=== PATIENT | female | born 1960 | race Caucasian/White ===

== ENCOUNTER 2016-07-09 05:35 | Day surgery (SDC) | payer MEDICARE ==
[~2016-07-09] VITALS: Ht 157.5 cm; Wt 112.5 kg
[2016-07-09] VITALS (12 sets, daily range): BP systolic 123–146; BP diastolic 71–88; PULSE 102–119; RESP 13–20; O2SAT 93–100
[2016-07-09] MEDS: Lactated Ringer's 1,000 ML IV SCH ×4 (05:00→09:00)
[~2016-07-09 05:35] MED LIST: INSU100V7 SUBQ; LEVO125C2 PO; LIP40 PO; LOSA50TA3 PO; VENL37.57 PO
[2016-07-09] MEDS ORDERED: fentaNYL-PF 50 mCg/mL 2 mL Inj ONE (05:36)
[2016-07-09] MEDS ORDERED: Rocuronium 10 mg/mL 5 mL Inj ONE ×2 (05:36)
[2016-07-09] MEDS ORDERED: Labetalol 5 mg/mL 20 mL Inj ONE ×2 (05:36)
[2016-07-09] MEDS ORDERED: Ondansetron 2 mg/mL 2 mL Inj ONE ×2 (05:36)
[2016-07-09] MEDS ORDERED: Dexamethasone 4 mg/mL Inj ONE ×2 (05:36)
[2016-07-09] MEDS ORDERED: Glycopyrrolate 0.2 MG/ML 1mL Inj ONE ×2 (05:36)
[2016-07-09] MEDS ORDERED: EPHEDrine/NS 5 mg/mL 5 mL Syringe ONE ×2 (05:36)
[2016-07-09] MEDS ORDERED: Phenylephrine/NS 100 mCg/mL 10 mL Syringe IVPUSH ONE (05:36)
[2016-07-09] MEDS ORDERED: Phenylephrine/NS-PF 100 mCg/mL 5 mL Syringe IVPUSH ONE (05:36)
[2016-07-09] MEDS ORDERED: Neostigmine 1 mg/mL 10 mL Inj ONE ×2 (05:36)
[2016-07-09] MEDS ORDERED: Propofol 10,000 mCg/mL 20 mL Inj ONE ×2 (05:36)
[2016-07-09] MEDS ORDERED: CeFAZolin Inj 2 gm / 50mL D5W IV ONE (05:40)
[2016-07-09 06:42] LABS: BASOPHILS % (AUTO) 0.3 % (0-3); EOSINOPHILS % (AUTO) 1.5 % (0-5); MONOCYTES % (AUTO) 11.2 % (4-12); Mean Corpuscular Volume 79.8 fL (81-100); NEUTROPHILS % (AUTO) 66.3 % (40-74); Platelet Count 297 bil/L (150-400)
[2016-07-09] MEDS ORDERED: Lactated Ringer's 500 ML IV PRN (07:24)
[2016-07-09] MEDS ORDERED: Lactated Ringer's 1,000 ML IV SCH (07:24)
--- NOTE | 2016-07-09 07:24 | PCM.HPANE ---
Patient Data Date of Service: Jul 09, 2016 (0723) Surgeon Admitting Provider: Attending Provider:Reshma Mitchell MD Primary Care Physician:Viktoriya Reis MD Other Provider:Jean Stone Anesthesia Reason for Visit Abnormal Uterine Bleeding ABNORMAL UTERINE BLEEDING Ht/WT & BMI Height (Feet): 5 Height (Inches): 2.00 Weight (Kilograms): 111.4 Body Mass Index 45.00 Allergies Coded Allergies: Sulfa (Sulfonamide Antibiotics) (Verified Allergy, Unknown, 10/18/15) adhesive tape (Verified Allergy, Unknown, 10/18/15) lamotrigine (Verified Allergy, Unknown, 10/18/15) Past Anesthesia History Anesthesia History: Denies:: Anesthesia Reactions (facial "red" for a day after last surgery, blood sugars high), Fam Anesthesia Reaction Diabetes History Hx Diabetes?: Yes Type of Diabetes: Type II Glycemic Control: Insulin Dependent Current Bedside Blood Glucose: 93 MRSA MRSA: No Medications Hypertension Medication: Yes Home Meds Incl Beta Milagro: No Reported Medications Venlafaxine 37.5 Mg Icmwam26.5 Mg PO BID Ref 0 07/08/16 Levothyroxine (Tirosint)125 Mcg Rptgdup009 Mcg PO DAILY 07/08/16 Insulin Glargine (Lantus U100 Insulin Vial)100 Unit/Ml Vial10 Unit SUBQ QPM #1 VIAL Ref 0 07/08/16 Insulin Glargine (Lantus U100 Insulin Vial)100 Unit/Ml Vial45 Unit SUBQ QAM #1 VIAL Ref 0 07/08/16 Losartan Potassium (Cozaar)50 Mg Bozmcc57 Mg PO DAILY 07/08/16 Atorvastatin (Lipitor)40 Mg Gqjslk27 Mg PO DAILY Ref 0 07/08/16 Discontinued Reported Medications Venlafaxine ER 37.5 Mg Tab.er.2450 Mg PO BID Ref 0 11/03/15 Trazodone 50 Mg Qolrzn82-923 Mg PO HS Ref 0 11/03/15 Levothyroxine (Tirosint)125 Mcg Ogmbrkq646 Mcg PO DAILY 11/03/15 Insulin Glargine (Lantus U100 Insulin Vial)100 Unit/Ml Vial12 Unit SUBQ QPM #1 VIAL Ref 0 11/03/15 Insulin Glargine (Lantus U100 Insulin Vial)100 Unit/Ml Vial55 Unit SUBQ QAM #1 VIAL Ref 0 11/03/15 Losartan Potassium (Cozaar)50 Mg Zsrodg68 Mg PO DAILY 11/03/15 Atorvastatin (Lipitor)40 Mg Yhfcfn04 Mg PO DAILY Ref 0 11/03/15 History History of ENT Problems?: Yes HEENT History: Positive for:: Hearing Problem Sinus Problem (hx of sinus polyps) Other HEENT Pertinent History: 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 Hx of Heart Problems?: Yes Cardiovascular History: Positive for:: Hypertension Denies:: Abdominal Aortic Aneurism Atrial Fibrillation Cardiac Surgery Heart Murmur Irregular Heartbeat Pacemaker Hx of Respiratory Problem?: No Respiratory History: Positive for:: Asthma (exertional asthma) Denies:: Oxygen Administration Pneumonia Tuberculosis Use of C-PAP Machine (high stop bang- has not done sleep study despite recommendations) Hx Neurologic Problems?: No Neurological History: Denies:: CVA Headaches Multiple Sclerosis Parkinson's Disease Seizures Hx of GI Problems?: Yes Gastrointestinal History: Positive for:: Gall Bladder Disease (removed) Denies:: Gastrointestinal Bleeding Heartburn Hepatitis Hx of Problems?: No Genitourinary History: Denies:: Kidney Stones Urinary Tract Infection Female Hx: Denies:: Currently Problems with Breasts? Skin History: Denies:: History Skin Disorders? Pressure Ulcers Hx Musculoskeletal Problems?: Yes Musculoskeletal History: Positive for:: Musculoskeletal Trauma (past hx knee arthroscopy) Hx of Psycho/Social Problems?: Yes Psycho Social History: Positive for:: Anxiety Hx Depression Hx Surgeries?: Yes (knee scope, arnaud, hysteroscopy) Hx Any Other Health Problems?: Yes Other History: Denies:: Cancer Thyroid Disease History Blood Transfusions: Positive for:: Accept Blood Products? Denies:: Blood Transfuse Reaction Blood Transfusions Hx Diabetes: YesBedside Blood Glucose: 93 Hx Alcohol Use: NoHx Substance Use: No Smoking Status: Never Smoker Have You Smoked inLast 12 mo: No Stop/Bang S-Snoring: Do You Snore Loudly: No T-Tired: feel tired, fatigued: No O-Obsered: Observed not breath: Yes P-Blood Pressure: treated: Yes B- Body Mass Index > 35 kg/m2: Yes A- Age over 50: Yes N- Neck Large Circumference: Yes G- Gender Male: No PHIL Total Score: 5 PHIL Risk Assessment: High Risk, =/>3 Yes Risk Assessment Category Category 1A: Patient has history of documented sleep apnea, and HAS NOT received any narcotic, sedative or anesthesia administration during this stay. Category 1B: Patient has history of documented sleep apnea, and HAS received any narcotic , sedative or anesthesia administration during this stay Category 2: Patient has SUSPECTED Obstructive Sleep Apnea, and HAS received any narcotic , sedative or anesthesia administration during this stay. Category 3: Patient has SUSPECTED Obstructive Sleep Apnea and HAS NOT received narcotic, sedative or anesthesia administration during this stay. Category 4: Outpatient in Procedural Areas with known sleep apnea or who screen positive for High Risk via the STOP/BANG questionnaire. Exam Exam Vital Signs Vital Signs Date Time Temp Pulse Resp B/P Pulse Ox O2 Delivery O2 Flow Rate FiO2 07/09/16 06:17 36.1 106 18 146/88 97 Room Air General Appearance: Alert, Oriented X3, Cooperative HEENT/AIRWAY: MP 2 Lungs: Clear to Auscultation Heart: Exam Unremarkable Meds/Labs/Diagnostics Admission Meds Current Medications Lactated Ringer's (Lr) 1,000 ml @ 120 mls/hr Q8H20M IV Last administered on t 05:13; Start 07/09/16 at 05:00; Stop 07/09/16 at 13:19 Bedside Blood Glucose: 93 Labs Test 07/09/16 06:33 White Blood Count 10.0th/mm3 (3.8-10.1) Red Blood Count 5.39mil/mm3 (3.90-5.20) Hemoglobin 14.0g/dL (12.0-15.6) Hematocrit 43.0% (35.0-46.0) Mean Corpuscular Volume 79.8fL (81-100) Mean Corpuscular Hemoglobin 26.0pg (27.0-35.0) Mean Corpuscular Hemoglobin Concent 32.6% (32.0-37.0) Red Cell Distribution Width 12.8% (12.3-15.4) Platelet Count 297bil/L (150-400) Neutrophils (%) (Auto) 66.3% (40-74) Lymphocytes (%) (Auto) 20.6% (14-46) Monocytes (%) (Auto) 11.2% (4-12) Eosinophils (%) (Auto) 1.5% (0-5) Basophils (%) (Auto) 0.3% (0-3) Sodium Level 141mEq/L (134-144) Potassium Level 4.0mEq/L (3.5-5.2) Chloride Level 102mEq/L (97-108) Carbon Dioxide Level 23mmol/L (18-29) Blood Urea Nitrogen 9mg/dL (6-24) Creatinine 0.57mg/dL (0.57-1.00) Estimat Glomerular Filtration Rate 158mL/min (>59) Glucose Level 108mg/dL (60-99) Calcium Level 8.7mg/dL (8.5-10.1) Plan Impression Patient chart reviewed, patient interviewed and anesthestic plan with risks, benefits, and alternatives discussed, and informed consent obtained. NPO Status: 07/07 ASA Physical Status: ASA3 Severe Disease Anesthetic Plan: GA Bene/Risks/Altern/Consents: Yes HP Complete Prior to Induction: Yes Antonio Martínez MD Jul 09, 2016 07:24
[2016-07-09] MEDS ORDERED: fentaNYL-PF 50 mCg/mL 2 mL Inj IVPUSH PRN (07:25)
[2016-07-09] MEDS ORDERED: MetoCLOpramide 5 mg/mL 2 mL Inj IVPUSH PRN (07:25)
[2016-07-09] MEDS ORDERED: Ondansetron 2 mg/mL 2 mL Inj IVPUSH PRN ×2 (07:25→11:40)
[2016-07-09] MEDS ORDERED: Phenylephrine 10,000 mCg/mL Inj IVPUSH PRN (07:25)
[2016-07-09] MEDS ORDERED: EPHEDrine Sulfate 50 mg/mL Inj IVPUSH PRN (07:25)
[2016-07-09] MEDS ORDERED: Dexamethasone 4 mg/mL Inj IVPUSH PRN (07:25)
[2016-07-09] MEDS: CeFAZolin Inj 2 GM in IV Premix 1 EACH IV ONE ×2 (07:45→08:03)
[2016-07-09] MEDS ORDERED: Bupivacaine 0.5%/EPI 50 mL Inj INFILTRATE ONE (08:45)
--- NOTE | 2016-07-09 11:12 | PCM.ANEP1 ---
Post Anesthesia Phase 1 PACU Phase 1 Assessment Date of Service: Jul 09, 2016 (0723) Vital Signs 133/77, 37.0, 20, 107, 99% Vital Signs Date Time Temp Pulse Resp B/P Pulse Ox O2 Delivery O2 Flow Rate FiO2 07/09/16 06:17 36.1 106 18 146/88 97 Room Air Anesthetic Administered: GA Level of Alertness: Awake, talking HENRIQUEZ's with Equal Strength: Yes Pain: No Nausea or Vomiting: No Oxygen Delivery: Simple Mask Lungs: Clear to Auscultation Dermatome Level: Full Sensation Summary Hemodynamic instability warranting an AL. Otherwise uneventful GETA. Antonio Martínez MD Jul 09, 2016 11:12
--- NOTE | 2016-07-09 11:13 | PCM.ANEP2 ---
Post Anesthesia Evaluation ASA/CMS Post Anesthesia VS in Patient's Normal Range?: Yes Resp Stable; Airway Patent?: Yes CV Function & Hydration Stable: Yes Mental Status Recovered?: Yes Pain control Satisfactory?: Yes N/V Control Satisfactory?: Yes Antonio Martínez MD Jul 09, 2016 11:13
[2016-07-09] MEDS: HYDROmorphone 1 mg/mL Inj IVPUSH PRN ×2 (11:19→11:34)
--- NOTE | 2016-07-09 11:35 | PCM.SURGOP ---
Surgical Operative Report Date of Service: Jul 09, 2016 Pre Operative Diagnosis 1. AUB 2. 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 AUB 2. 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 Abdominal and pelvic adhesions Procedure: 1. Total laparoscopic hysterectomy with right salpingectomy 2. Extensive lysis of adhesions 3. Cystoscopy of the bladder Surgeon and Cobol Application Developer: Surgeon: Reshma Mitchell MD Assistants: Hortensia Gonzáles was necessary for this procedure for her surgical expertise and to help with exposure. Indication for Procedure 55 y/o G0 with Flynn syndrome, type II diabetes and history of abnormal uterine bleeding who presents today for hysterectomy, Findings: Intraoperative findings showed dense pelvic adhesions of the bladder to the lower uterine segment and an obliterated posterior cul-de-sac. There were omental adhesions to the right pelvic and abdominal sidewall. There were omental adhesions and bowel adhered to the left pelvic sidewall and anterior abdominal wall. Survey of the upper abdomen was normal. No significant adhesions were appreciated in her upper abdomen. The uterus appeared normal shaped. There was a single right fallopian tube. No left fallopian tube was appreciated. Did not visualize or appreciate any ovaries bilaterally. The introitus was very narrow. Able to fit 2 fingers into the patient's vagina. The cervix was normal in appearance but very small. On cystoscopy the bladder there was no suture appreciated in the bladder. There was bilateral spillage of urine from both ureters and the procedure. Rectal exam postoperatively was normal. No suture was palpated in the rectum. Procedure Details Patient was taken to the operating room where her general anesthesia was obtained without difficulty. She was placed in a lithotomy position in the [facility] an acute care hospital and prepared and draped in the normal sterile fashion. A bivalve speculum was inserted into the patient's vagina and the cervix was identified and grasped with a single-tooth tenaculum and a small V care uterine manipulator was inserted with some difficulty due to narrow introitus. A Garibay catheter was placed. Our attention was then turned patient's abdomen. The umbilicus was injected with 7 mL's of half percent Marcaine with epinephrine. A varies needle was inserted directly into the patient's peritoneal cavity. Water drop test and needle aspirate was confirmatory and negative. A pneumoperitoneum was then obtained with CO2 gas to a pressure of 15 mmHg. A 5 mm skin incision was made with a scalpel at the base of the umbilicus and a 5 mm blunt trocar was inserted directly into the patient's peritoneal cavity using the Visiport function of the trocar. Survey of abdomen and pelvis noted as above. A right and left lower quadrant port site were marked off and skin was injected with half percent Marcaine with epinephrine. Two 5mm skin incisions were made with a scalpel and 5 mm blunt trochars were inserted under direct visualization. At this point in the procedure the adhesions in the right lower quadrant were taken down with blunt and sharp dissection. In a similar fashion the omental adhesions in the left lower quadrant were taken down with blunt and sharp dissection to help with visualization. There was an omental curtain adhered over the fundus of the uterus and obscuring the pelvis. This was transected at its attachment to the anterior abdominal wall and retracted. Once normal anatomy was restored with lysis of adhesions a total laparoscopic hysterectomy with right salpingectomy was performed using the Thunderbeat cautery device. I was unable to clearly identify the ureters at the beginning of the procedure due to dense pelvic and abdominal wall adhesions. The right fallopian tube was removed with the Thunderbeat cautery device at beginning of case. The round ligament was transected bilaterally. The anterior leaf of the broad ligament was then opened and carried anteriorly creating a bladder flap. This took a significant amount of time due to the density of scarring and adhesions of the bladder to the lower uterine segment. The uterine arteries were skeletonized bilaterally. They were cauterized and transected using the Thunderbeat cautery device. The V care cup was identified and the vagina was entered sharply with the Thunderbeat cautery device. This incision was carried around circumferentially freeing the uterus from the vagina. The uterus was then removed through the patient's vagina. The pelvis was irrigated with saline. The vaginal cuff was then reapproximated with a 2-0 V lock suture in a running fashion. Good hemostasis was assured. This completed the hysterectomy portion of the case. All instruments were removed from the patient's perineal cavity. The pneumoperitoneum was released and the patient given several deep inspiratory breath to help expel any excess CO2 gas. The skin incisions were reapproximated with 4-0 Monocryl in a subcuticular fashion and Dermabond applied. A cystoscopy of the bladder was then performed using a 70 cystoscope. The Garibay catheter was removed and a 70 cystoscope was inserted into the bladder. The bladder was distended with 300 mL's of normal saline. Survey of the bladder was performed and there was bilateral spillage of urine from both ureters at the end of procedure and the bladder was noted to be free of any sutures or defects. The cystoscope was then removed. A rectal exam was performed and no suture material was felt rectally. All lap instrument and needle counts were correct 2 at the end of the procedure Complications There were no periprocedural complications identified. Surgical Specimen Removed: Yes Specimen sent to Pathology: Yes Surgical Specimen description: 1. Uterus with portion of right fallopian tube. Anesthetic Plan: GA Grafts, Implants: None Output, Estimated Blood Loss: 100 Blood Administration during escobar: No Catheters: None Reshma Mitchell MD Jul 09, 2016 11:35
[2016-07-09] MEDS ORDERED: Polyethylene Glycol (PEG) 17 Gm Powder PO PRN (11:40)
[2016-07-09] MEDS ORDERED: Alum-Mag Hydrox-Simeth 30 mL Suspension PO PRN (11:40)
[2016-07-09] MEDS ORDERED: Glucose 40% Oral Gel 15 Gm Tube PO PRN ×2 (11:55→17:25)
[2016-07-09] MEDS ORDERED: Insulin LISPRO 300 Unit/3 mL Inj SUBQ SCH (12:00)
[2016-07-09] MEDS ORDERED: HYDROmorphone 0.5 mg/0.5 mL iSecure Syringe ONE (15:05)
[2016-07-09] MEDS ORDERED: HYDROmorphone PCA 0.2 mg/mL 30 mL Inj IV PRN (15:10)
[2016-07-09] MEDS ORDERED: HYDROmorphone 0.5 mg/0.5 mL iSecure Syringe IVPUSH ONE (15:35)
[2016-07-09] MEDS: 0.9% Sodium Chloride 1,000 ML IV SCH (15:38)
[2016-07-09] MEDS: Sodium Chloride LOK Flush 10 mL Syringe IVFLUSH SCH (16:30)
[2016-07-09] MEDS: oxyCODONE-Acetamin 5-325 mg Tablet PO PRN ×2 (16:54→23:21)
--- NOTE | 2016-07-09 17:25 | NUR ---
Admission/Garibay Pt arrived on unit at 1235 on gurney from PACU for lap total hysterectomy. Pt sleepy and awakens to voice, transferred to bed using slide board. Pt has 4 lap sites with duoderm and no drainage. Peripad in place for minimal serosanguineous vaginal output. Pt has IV infusing LR and 2L NC on. SCD's on and reconnected. Pain well controlled 3/10. Has sensation of needing to void, but unable to void on bedpan or BSC. Bladder scan done at 1410 and is 566ml. Multiple Garibay attempts and unable to find urethra. Ric OCONNELL and per his instructions were able to place Garibay, draining dark urine to gravity. 600ml output.
[2016-07-09] MEDS: Insulin LISPRO 300 Unit/3 mL Inj SUBQ SCH ×2 (18:45→22:00)
[2016-07-09] MEDS ORDERED: Insulin GLARgine 100 Unit/mL Syringe SUBQ SCH ×2 (21:00→22:00)
[2016-07-09] MEDS: Insulin GLARgine 100 Unit/mL Syringe SUBQ SCH (23:16)
[2016-07-10] VITALS (8 sets, daily range): BP systolic 83–133; BP diastolic 54–82; PULSE 101–117; RESP 16–20; O2SAT 92–97
[2016-07-10] MEDS: Sodium Chloride LOK Flush 10 mL Syringe IVFLUSH SCH ×3 (00:30→17:14)
[2016-07-10] MEDS: oxyCODONE-Acetamin 5-325 mg Tablet PO PRN ×3 (04:17→20:49)
--- NOTE | 2016-07-10 06:34 | NUR ---
Pain Pt having abdominal pain, surgical sites well approximated, no s/s of infection. Percoset Q4 given to address pain with good results. pt pleasant and cooperative. Will continue to monitor.
--- NOTE | 2016-07-10 06:53 | PCM.DIGYN ---
Surgical Discharge Instruction Dates of Hospitalization Date of Hospital Admission 07/09/16 Providers Admitting Physician: Primary Care Physician: Viktoriya Reis MD Attending Physician: Reshma Mitchell MD Diagnosis at Time of Discharge Diagnosis at time of discharge 1. Abnormal uterine bleeding 2. Morbid obesity 3. Turners syndrome 4. Type 2 DM insulin dependent 5. Abdominal and pelvic adhesions Problems: (1) Abnormal uterine bleeding (AUB) Plan: Postop day 1 after laparoscopic hysterectomy Status: Chronic ICD Code: N93.9 Diet Discharge Diet: No restrictions, Diabetic Activity Discharge Activity-General: Be up and about, Balance rest and activity, Activity as pain allows, No lifting >15 pounds for 2 weeks, No driving while taking narcotic Dressing and Incisional Care Dressing Care: Allow Steri Stripes to fall off Hygiene: May shower, DO NOT soak incision under water, NO bathtub, hot tub or whirlpool Additional Instructions Discharge Instructions Pelvic rest until follow up appointment in 2 weeks including no intercourse or tampon use. Prescription for Percocet has been provided for you to use as needed for pain. Percocet contains Tylenol so be careful to take as directed. Follow Up Plan Follow-up Provider (F9): Reshma Mitchell MD Follow-up appointment: Weeks (2) Call your provider for: Fever, Chills, Shortness of breath, Vomitting, Drainage at incision, Heavy vaginal bleeding, Wound redness, Increasing pain JAIRO CALDWELL DO Jul 10, 2016 06:52
[2016-07-10] MEDS ORDERED: OXYC1TAB24 PO (06:55)
[2016-07-10 07:17] LABS: BASOPHILS % (AUTO) 0 % (0-3); EOSINOPHILS % (AUTO) 0 % (0-5); MONOCYTES % (AUTO) 8.8 % (4-12); Mean Corpuscular Hemoglobin 26.5 pg (27.0-35.0); Mean Corpuscular Volume 80.6 fL (81-100); NEUTROPHILS % (AUTO) 86.4 % (40-74); Platelet Count 308 bil/L (150-400)
[2016-07-10] MEDS: Insulin LISPRO 300 Unit/3 mL Inj SUBQ SCH ×6 (08:18→23:40)
[2016-07-10] MEDS: 0.9% Sodium Chloride 1,000 ML IV SCH (08:20)
[2016-07-10] MEDS ORDERED: Insulin GLARgine 100 Unit/mL Syringe SUBQ SCH ×2 (08:30)
--- NOTE | 2016-07-10 10:15 | NUR ---
Social Work-screening/discharge: Data:EMR reviewed. Pt is a 56 y/o female who was admitted for abnormal uterine bleeding per H&P. Pt is medically stable for discharge. Per RN notes, pt has been up independent in her room. Pt's to provide transport home. No discharge needs identified. All updated and agreeable to plan. Assessment:Pt who is independent at baseline. Plan:Pt to discharge home today via POV. No discharge needs identified. All updated and agreeable to plan. SUZETTE Stephenson
[2016-07-10] MEDS ORDERED: Insulin GLARgine 100 Unit/mL Syringe SUBQ ONE (10:45)
--- NOTE | 2016-07-10 13:20 | NUR ---
Garibay D/C'd Garibay at 0800. Pt drinking fluids and sat on the commode three times trying to urinate. Bladder scan showed 339cc. Pageisrael OCONNELL. Per order Place I/O catheter. Pt voided 200cc. Encouraged pt to keep drinking fluids, and get up and ambulate. Will continue to monitor.
--- NOTE | 2016-07-10 14:58 | NUR ---
BP/Blood Sugar Pt appeared to be sweat and COOK HELPER reported bp of 94/58. Blood glucose 190. MD galloway. Gave unscheduled sliding scale. Took bp again manually pt had bp of 92/60. aware, will continue to monitor. Addendum: 07/10/16 at 1639 by LEÓN CARTAGENA RN Encouraged pt to get up and walk, Pt states she is still "weak and tired." Pt has been up and trying to urinate again. Encourage pt to drink more fluids and ambulate. aware. Will continue to monitor.
--- NOTE | 2016-07-10 18:22 | NUR ---
VOID/BP Pt was able to void x2, good amounts both time. Reports pain with ambulation, ibuprofen given for pain. BP continues to be on the low side (last taken at 1820 was 89/65) but pt feels "better", no fever, no chest pain, not reporting lightheadedness with ambulation. Reports minimal vaginal bleeding. Will continue to monitor.
[2016-07-10] MEDS: Insulin GLARgine 100 Unit/mL Syringe SUBQ SCH (20:50)
[2016-07-11] MEDS: Sodium Chloride LOK Flush 10 mL Syringe IVFLUSH SCH ×2 (01:53→09:27)
--- NOTE | 2016-07-11 03:35 | NUR ---
Void/Pain Patient up several times during shift to void, output is consistently adequate. Sensitive to Percocet last shift, patient requested half pill stating pain has been relieved without ASE to medication. Patient continues to rest comfortably denying pain at this time.
[2016-07-11 05:05] VITALS: BP 121/74; PULSE 94; RESP 18; O2SAT 94
[2016-07-11] MEDS: Insulin LISPRO 300 Unit/3 mL Inj SUBQ SCH ×2 (08:00→12:01)
[2016-07-11] MEDS: oxyCODONE-Acetamin 5-325 mg Tablet PO PRN (08:15)
[2016-07-11] MEDS ORDERED: Insulin GLARgine 100 Unit/mL Syringe SUBQ SCH (08:30)
[2016-07-11 08:40] LABS: Mean Corpuscular Hemoglobin 26.6 pg (27.0-35.0); Mean Corpuscular Volume 81.9 fL (81-100)
[2016-07-11] MEDS: 0.9% Sodium Chloride 1,000 ML IV SCH (11:55)
--- NOTE | 2016-07-11 14:01 | NUR ---
Discharge Patient was discharged home with . Patient was given verbal and written home care instructions and agreed to understanding them. Patient has follow up appointment already scheduled for 2weeks . No prescriptions given here.
--- NOTE | 2016-07-11 16:08 | PATH ---
SURGICAL PATHOLOGY Attending Physician:Reshma Mitchell, CASE STATUS: Signed Out PATIENT NAME: WILLIAN HAYES PID: [id number] : 1960 DATE COLLECTED:07/09/2016 15:46 SPECIMEN: 1: Fallopian Tube, Biopsy 2: Uterus +/- tubes/ovaries, except neoplastic, prolapse CLINICAL HISTORY: ABNORMAL UTERINE BLEEDING 1. PORTION OF RIGHT FALLOPIAN TUBE (OUT 09:25 TIF 09:28) 2. UTERUS (OUT 10:16 TIF 10:18) FINAL DIAGNOSIS: 1.PORTION OF RIGHT FALLOPIAN TUBE: FALLOPIAN TUBE WITH NO PATHOLOGIC ALTERATIONS. 2.UTERUS: UTERUS (54 GRAMS) WITH BENIGN PROLIFERATIVE ENDOMETRIUM. NEGATIVE FOR HYPERPLASIA, ATYPIA AND NEOPLASIA. ICD10 code N93.9 GROSS DESCRIPTION: The specimens are received in formalin, labeled with the patient's name, and sublabeled as the following: (1) portion of right fallopian tube; (2) uterus. (1) The specimen consists of a fimbriated fallopian tube (length-4.1 cm, diameter-0.5 cm). The serosa is ruff-purple smooth and shiny. The lumen is ruff and unremarkable. Section code: (1A) fallopian tube, serially sectioned, technical services representative; (1B) fimbria, bivalved, entirely submitted. (2) The specimen consists of a uterus (54 g, 3.4 cm in AP, 7.8 cm SI, 4.5 cm ML). The ovaries and fallopian tubes are absent. The cervix (1.7 cm in AP, 2.3 cm ML) has a transverse os and patent endocervical canal lined with multiple cystic cavities (0.1 cm-0.9 cm) containing clear colorless and yellow gelatinous material. The endometrium (average thickness-0.2 cm) is ruff-pink smooth and flat. The myometrium (thickness-up to 1.5 cm) is ruff-white and unremarkable. The serosa is ruff smooth and shiny. Section code: (2A) anterior cervix; (2B) posterior cervix; (2C, 2D) anterior endomyometrium; (2E, 2F) posterior endomyometrium. 07/10/16 JM MICRO DESCRIPTION: See diagnosis. ICD-9 CODES: CPT CODES: 1: 32850 2: 15528 Electronically Signed Out Felicia Gavin MD [facility] [address], [place] [address] Technical component performed at [facility], [address], [place], [address]
== END 2016-07-11 12:51 | disposition home or self-care (01) ==
LOC: SAS 05:35 → OSC 12:39 → SAS 07-11 12:51
PROVIDERS: ATTEND Obstetrics & Gynecology
DX: N93.9 Abnormal uterine and vaginal bleeding, unspecified (principal); E66.01 Morbid (severe) obesity due to excess calories; E11.9 Type 2 diabetes mellitus without complications; Q96.9 Turner's syndrome, unspecified; N73.6 Female pelvic peritoneal adhesions (postinfective); Z68.42 Body mass index [BMI] 45.0-49.9, adult; Z79.4 Long term (current) use of insulin; Z79.899 Other long term (current) drug therapy
CPT/HCPCS: 36415; 58571; 80048; 85025; J0690; J1170; J1815; J2250; J3010; J7030; J7120